=== PATIENT | female | born 2000 ===

== ENCOUNTER 2024-11-08 12:52 | Outpatient (AMB) | payer OTHER, SELFPAY ==
--- NOTE | 2024-11-08 12:58 | MHC.PC.OV ---
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 x3 years Health Promotion Coordinator Required: Yes Health Promotion Coordinator Name: Evie Armas Information Interpreted: clinical only Allergies aspirn Adverse Reaction (Uncoded 11/08/24 13:43) Eye Swelling seafood Adverse Reaction (Uncoded 11/08/24 13:43) Eye Swelling Medication List - Last Reconciled 11/08/[address] MD levonorgestrel (Mirena) intrauterine Tobacco use date assessed: 11/08/24 Dental Screening Dental Screen Date: 11/08/24 Did you have a dental visit in the last 12 months?: Yes Did you have a dental problem in the last 6 months where you did not have access to dental care?: Yes Was dental information given to patient?: Patient has dentist 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 Denies any accompanying fever, no cough, no shortness of breath no wheezing. Has just been taking Panadol tablets which affords no relief. She also had an IUD inserted in [place], [facility] ,3 years ago, and states that she has not had her period now for the last 2 years. Denies any abdominal cramping, occasional breast tenderness. She is currently sexually active with her partner, but has not done a test at all. She does want to be referred to an OBGYN for further evaluation and follow-up on her Mirena IUD [facility] Medical History (Updated 11/08/24 @ 13:[address] MD) Presence of Mirena IUD URI (upper respiratory infection) Surgical History (Updated 11/08/24 @ 14:[address] MD) No pertinent past surgical history Social History Housing: Apartment Patient Tobacco Use Status: Never used Tobacco e-Cigarette/Vaping Use: Never Used service: No Current occupational status: unemployed Cognitive needs: No Hearing needs: No Vision needs: No Female Reproductive History Menstrual control method: progestin IUCD Questionnaire PHQ-9 Over the last 2 weeks, how often have you been bothered by any of the following problems? 1. Little interest or pleasure in doing things: not at all 2. Feeling down, depressed, or hopeless: not at all 3. Trouble falling or staying asleep, or sleeping too much: not at all 4. Feeling tired or having little energy: not at all 5. Poor appetite or overeating: not at all 6. Feeling bad about yourself - or that you are a failure or have let yourself or your family down: not at all 7. Trouble concentrating on things, such as reading the newspaper or watching television: not at all 8. Moving or speaking so slowly that other people could have noticed. Or the opposite - being so fidgety or restless that you have been moving around a lot more than usual: not at all 9. Thoughts that you would be better off or of hurting yourself in some way: not at all Total score: 0 Depression Screening Interpretation: Negative Depression Screening Done: Yes 75655 - PHQ-9 Billing: Yes Source: Developed by Drs. Jose Quarels, Liz Hawkins, Miller Cox and colleagues, with an educational ginger from [employer]. Thrive Questionnaire Date Thrive assessed: 11/08/24 I am a: Patient What is your living situation today?: I have a steady place to live Within the past 12 months, did the food you bought not last and you didn't have the money to get more?: I choose not to answer this question Within the past 12 months, did you worry whether your food would run out before you got money to buy more?: Never true Do you have trouble paying for medicines?: No Do you have trouble getting transportation to medical appointments?: No Do you have trouble paying your heating and electricity bill?: No Do you have trouble taking care of your child, family member or friend?: No Do you have trouble with day-to-day activities such as bathing, preparing meals, shopping, managing finances, etc.?: No Are you currently unemployed and looking for a job?: Yes Are you interested in more education?: Yes Please select the resources that you would like help with: None Currently or been in a relationship where the following occur: No concerns reported THRIVE Score: 0 AUDIT C Alcohol Use Questionnaire (AUDIT-C) 1. How often do you have a drink containing alcohol?: Never Total Score: 0 WYATT-7 AMB Questionnaire WYATT-7 Date WYATT - 7 assessed: 11/08/24 Feeling nervous, anxious, or on edge: 0 = Not at all Not being able to stop or control worryin = Not at all Worrying too much about different things: 0 = Not at all Trouble relaxin = Not at all Being so restless that it is hard to sit still: 0 = Not at all Becoming easily annoyed or irritable: 0 = Not at all Feeling afraid as if something awful might happen: 0 = Not at all Total WYATT-7 score (0-4 normal; 5-9 mild; 10-14 moderate; 15-21 severe): 0 Source: Developed by Drs. Jose Quarles, Liz Hawkins, Miller Cox and colleagues, with an educational ginger from [employer]. WYATT-7 Assessment Billing WYATT-7 Assessment Tool: WYATT-7 Assessment 65948 Review of Systems Const All systems reviewed & are unremarkable except as noted in HPI and below Physical exam (Primary Care) Vital Signs: Last Vital Signs Temp 98.3 F 11/08/24 13:00 Pulse 94 11/08/24 13:00 Resp 18 11/08/24 13:00 BP 110/70 11/08/24 13:00 Pulse Ox 98 11/08/24 13:00 Oxygen Delivery Method Room Air 11/08/24 13:00 BMI result Body Mass Index 35.5 Tobacco/Smoking Status: Tobacco use Status Tobacco use date assessed 11/08/24 11/08/24 13:10 Patient Tobacco Use Status Never used Tobacco 11/08/24 13:10 e-Cigarette/Vaping Use Never Used 11/08/24 13:10 PHQ-9: PHQ-9 Score PHQ-9: Total score 0 11/08/24 13:44 Depression Screening Interpretation: Negative Thrive Assessment: Date of Thrive Assessment Date Thrive assessed 11/08/24 11/08/24 13:10 Currently or been in a relationship where the following occur: No concerns reported Const Other: Colombian-speaking, spoke via medical claims manager General: healthy appearing, comfortable and no acute distress Nutritional Appearance: obese Orientation/consciousness: patient oriented x3 HENMT Ears: external ears normal, TM's normal bilaterally and EAC's normal General nose exam: Normal nares present and Normal nasal mucous membranes and turbinates present Face and sinus: Yes sinuses nontender and Yes face symmetric Mouth: Normal oral and palatal mucosa present, oropharynx normal and moist mucous membranes Neck Neck: Yes full ROM, Yes no lymphadenopathy and Yes supple Resp Auscultation: clear to auscultation bilaterally Cardio Rate: regular rate Rhythm: regular rhythm Heart sounds: S1 normal heart sound present and S2 normal heart sound present GI Inspection: Yes obesity Palpation (GI): Soft to palpation, nontender, no guarding and no masses Neuro General: patient oriented x3 Coding Level of Care Code New Pt Level 4 (76034) Diagnoses Missed period N92.6 URI (upper respiratory infection) J06.9 Amenorrhea N91.2 Additional Codes PHQ-9 - 36009 - PHQ-9 Billing: Yes ([id number]) WYATT-7 Assessment Billing - WYATT-7 Assessment Tool: WYATT-7 Assessment [id number] ([id number]) Assessment & Plan Assessment & Plan (1) Missed period: Code(s): N92.6 - Irregular menstruation, unspecified Plan: Ordered serum hCG test (2) URI (upper respiratory infection): Code(s): J06.9 - Acute upper respiratory infection, unspecified Category: Medical Plan: Prescription sent for DayQuil/NyQuil, to you take as directed. Tablets were sent as patient could not tolerate liquid medication. Prescription also sent for Azelastine nasal, use 1 spray per nostril twice a day. Return to clinic if no was done (3) Amenorrhea: Code(s): N91.2 - Amenorrhea, unspecified Plan: Ordered serum hCG quantitative test referred to [facility] for further evaluation management and for IUD follow-up Orders: Orders HCG Quantitative Today N92.6 - Irregular menstruation, unspecified Referrals INTERACTIVE MEDIA SPECIALIST Referral N91.2 - Amenorrhea, unspecified, Z97.5 - Presence of (intrauterine) contraceptive device Medications: New AC-WG-ifikou/TN-xytxbw-secfyip 10-5-325mg(d)/ 15-325-6.25mg (Vicks DayQuil-NyQuil) 1 cap PO BID PRN 48 caps 0RF nasal congestion/rhinorrhea azelastine administer into each nostril 1 spray intranasal BID 30 mL 0RF J06.9 - Acute upper respiratory infection, unspecified
[2024-11-08 13:00] VITALS: BP 110/70; PULSE 94; RESP 18; TEMP 36.8; O2SAT 98; BMI 35.5
== END 2024-11-08 13:56 | disposition home or self-care (01) ==
PROVIDERS: PCP Internal Medicine; Visit Provider Internal Medicine
DX: N92.6 Irregular menstruation, unspecified (principal); J06.9 Acute upper respiratory infection, unspecified; N91.2 Amenorrhea, unspecified

== ENCOUNTER → 2024-11-08 12:52 | Outpatient (BNVA) | payer OTHER, SELFPAY | PROVIDERS: PCP Internal Medicine; Visit Provider Internal Medicine | DX: N92.6 Irregular menstruation, unspecified (principal); J06.9 Acute upper respiratory infection, unspecified; N91.2 Amenorrhea, unspecified | CPT/HCPCS: 96127; 99202 ==

== ENCOUNTER 2024-12-03 13:07 | Outpatient (AMB) | payer OTHER, SELFPAY ==
--- NOTE | 2024-12-03 13:48 | A.OFFVIS_ITS ---
Vital Signs 12/03/24 13:49 Height 5 ft Weight 182 lb BMI 35.5 Intake Visit Reasons: Amenorrhea Local Company Flatbed Truck Driver Required: Yes Local [employer] Flatbed Truck Driver Language: Measurement Technician Services: Local [employer] Flatbed Truck Driver Present (in person) [employer] Flatbed Truck Driver Name: Malka REAL Information Interpreted: non-clinical & clinical Accompanied by: Self / Same As Patient Allergies aspirn Adverse Reaction (Uncoded 12/03/24 14:12) Eye Swelling seafood Adverse Reaction (Uncoded 12/03/24 14:12) Eye Swelling Is last menstrual period known: No (mirena) HPI Comments Details: The patient is presenting to discuss different options of control. Patient had Mirena IUD inserted 3 years ago since then she has been amenorrheic, no side effects or concerns [facility] Medical History Presence of Mirena IUD URI (upper respiratory infection) Surgical History No pertinent past surgical history Social History Housing: Apartment Patient Tobacco Use Status: Never used Tobacco e-Cigarette/Vaping Use: Never Used service: No Current occupational status: unemployed Cognitive needs: No Hearing needs: No Vision needs: No Female Reproductive History Menstrual control method: progestin IUCD Review of Systems Const All systems reviewed & are unremarkable except as noted in HPI and below Reports as per HPI and Reports no additional complaints GI Reports no additional complaints Reports no additional complaints Physical Exam Vital Signs: BMI result Body Mass Index 35.5 Results AMB Test Urine AMB Test Urine Negative Last Edit by Malka Huang CMA on 13:48 Results Reviewed Results Reviewed: Laboratory Last Values Tst Clinic Negative 12/03/24 13:48 Assessment & Plan Assessment & Plan (1) Family planning: Code(s): Z30.09 - Encounter for other general counseling and advice on contraception Category: Social Hx Plan: Discussed with the patient the different options of control including control pills/Nuvaring, DMPA, different types of IUD ?s. All the pros, cons, risks and benefits of each were discussed with the patient. The patient decided to go stay with IUD, so a more detailed discussion was carried on including types (Progesterone, Copper), mechanism of action, risks (infection, uterine perforation, failure with ectopic , septic AB, dysmenorrhea with Paraguard, others) benefits (efficient contraceptive method, hypo menorrhea with Progesterone IUD, others) Orders: Orders AMB HCG Urine Test Today Z32.02 - Encounter for test, result negative Coding Level of Care Code New Pt Level 3 (41514) Diagnoses Family planning Z30.09
[2024-12-03 13:49] VITALS: BMI 35.5
== END 2024-12-03 14:46 | disposition home or self-care (01) ==
PROVIDERS: PCP Internal Medicine; Visit Provider Obstetrics & Gynecology
DX: Z30.09 Encounter for other general counseling and advice on contraception (principal); Z32.02 Encounter for pregnancy test, result negative
CPT/HCPCS: 99203

== ENCOUNTER → 2024-12-03 13:07 | Outpatient (BNVA) | payer OTHER, SELFPAY | PROVIDERS: PCP Internal Medicine; Visit Provider Obstetrics & Gynecology | DX: Z30.09 Encounter for other general counseling and advice on contraception (principal) | CPT/HCPCS: 81025; 99202 ==

== ENCOUNTER 2024-12-23 18:02 | Emergency (ER) | payer OTHER, SELFPAY ==
[2024-12-23 18:05] VITALS: BP 136/110; PULSE 138; RESP 20; TEMP 37.7; O2SAT 98; BMI 35.7
--- NOTE | 2024-12-23 18:06 | ED_ITS ---
HPI - URI/Sore Throat General Chief Complaint: Upper Respiratory Symptoms Stated Complaint: Chills/body aches/headache Time Seen by Provider: 12/23/24 19:04 Source: patient Mode of arrival: ambulatory Limitations: no limitations History of Present Illness ED Provider: Librado Mitchell PA-C HPI Narrative: 24 yo female presents to the ER for evaluation of fever, chills, body aches, sore throat and vomiting that started today. her sons at home are sick - 1 with influenza A and 1 with influenza B. bilateral tonsillar erythema and swelling with uvula midline. reports 10/10 pain in the body and 8/10 pain in the throat. no chest pain, abdominal pain, nausea, or diarrhea. she vomited once today. MD elicited complaint: fever, sore throat and nasal congestion Onset (ago): hour(s) Consistency: progressively worsening Severity: moderate Able to tolerate fluids by mouth: Yes Exacerbating factors: swallowing Relieving factors: nothing Context: sick contacts Associated symptoms: fever, chills, nasal congestion, sore throat, nausea and vomiting Treatments prior to arrival: none Related Data Home Medications ?Medication ?Instructions ?Recorded ?Confirmed levonorgestrel 21 mcg/24 hr (up to intrauterine 11/08/24 8 years) 52 mg intrauterine device (Mirena) Previous Rx's ?Medication ?Instructions ?Recorded azelastine 137 mcg (0.1 %) nasal 1 spray intranasal BID #30 mL 12/07/24 spray amoxicillin 875 mg-potassium 1 tab PO BID #20 tabs 12/23/24 clavulanate 125 mg tablet ibuprofen 600 mg tablet 600 mg PO Q8H PRN fever or pain 12/23/24 #14 tabs ondansetron 4 mg disintegrating 4 mg PO Q6H PRN nausea and 12/23/24 tablet vomiting #10 tabs Allergies Allergy/AdvReac Type Severity Reaction Status Date / Time aspirn AdvReac Eye Uncoded 12/23/24 18:10 Swelling seafood AdvReac Eye Uncoded 12/23/24 18:10 Swelling Review of Systems Review of Systems: Yes all other systems are reviewed and are negative PMFSH Past Medical History Medical History Presence of Mirena IUD URI (upper respiratory infection) Surgical History No pertinent past surgical history Social History Social History Housing: Apartment Patient Tobacco Use Status: Never used Tobacco e-Cigarette/Vaping Use: Never Used Advance Directives: No Advance Directives Information Provided: No service: No Current occupational status: unemployed Cognitive needs: No Hearing needs: No Vision needs: No Physical Exam Vital Signs: Vital Signs: Last Vital Signs Temp 99.4 F 12/23/24 19:56 Pulse 114 H 12/23/24 19:56 Resp 16 12/23/24 19:56 BP 106/49 L 12/23/24 19:56 Pulse Ox 97 12/23/24 19:56 O2 Del Method Room Air 12/23/24 19:56 BMI result Body Mass Index 35.7 Appearance: Alert. Oriented X3. No acute distress. Head: normocephalic, atraumatic. Eyes: Pupils equal, round and reactive to light. ENT: Pharynx normal. bilateral tonsillar erythema, swelling & mild exudate on the left. uvula midline. normal voice, handling secretions normally. Neck: Normal inspection. Neck supple. no LAD CVS: Normal heart rate and rhythm. Pulses normal. Respiratory: No respiratory distress. Breath sounds normal. Abdomen: Soft and nontender. +BS x4 Skin: Skin warm and dry. Normal skin color. Normal skin turgor. No rashes. Extremities: No lower extremity edema. No joint swelling. Neuro/psych: Oriented X 3. grossly normal, nonfocal. Normal speech and cognition. Medications Administered Discontinued Medications Generic Name Dose Route Start Last Admin Trade Name Freq PRN Reason Stop Dose Admin Amoxicillin/Clavulanate Potassium 875 mg 12/23/24 19:04 12/23/24 19:16 Amoxicillin/Potassium Clav 875 Mg Tablet PO 12/23/24 19:05 875 mg ONCE ONE Administration Ibuprofen 600 mg 12/23/24 18:09 12/23/24 18:50 Ibuprofen 600 Mg Tablet PO 12/23/24 18:10 600 mg ONCE ONE Administration Ondansetron HCl 4 mg 12/23/24 18:09 12/23/24 18:50 Ondansetron Odt 4 Mg Tab.Rapdis TRANSLINGU 03/16/25 18:10 4 mg ONCE ONE Administration Medical Decision Making Medical Decision Making MDM Narrative: 24 yo female with influenza contacts at home presenting with sore throat, N/V, fever, chills. exam c/w strep. tachycardic on arrival, likely due to pain and discomfort. no fever given motrin, zofran with improvement in HR found to be strep positive. augmentin started viral panel negative tolerating PO. stable for d/c home with PO abx nad nsaids. Differential Diagnosis Differential Diagnoses: The differential diagnosis associated with the presentation includes strep, covid, flu, rsv, other viral syndrome, bronchitis, pneumonia, no evidence of peritonsillar abcsess or retropharyngeal abscess Lab Data [facility] Lab Attestation statement: I reviewed the patient's lab results. Labs: Lab Results 12/23/24 12/23/24 Range/Units 18:35 18:38 Influenza Type A (PCR) NEGATIVE (Negative) Influenza Type B (PCR) NEGATIVE (Negative) RSV RNA Qual (PCR) NEGATIVE (Negative) SARS-CoV-2 RNA (RT-PCR) NEGATIVE (Negative) S. pyogenes GrpA BRANDT Positive A (Negative) External Record Review External record reviewed: Prior outpatient labs Tests considered The following testing was considered but not selected: considered labs and cxr given tachycardia, but this improved with treatment and she appears well Prescription Management I considered prescription management with: Pain Medication, Antiviral and Antibiotic Critical Care Time Critical Care Time Critical Care Time: No Discharge Plan Discharge Clinical Impression: Strep throat Patient Disposition: Home, Self-Care Instructions: Strep Throat (DC) Additional Instructions: you have strep throat Take the prescribed antibiotics as directed, complete the entire course and do not miss any doses use warm salt water gargles 3 times per day take the prescribed ibuprofen as needed for pain and fever rest and drink plenty of fluids If you develop new or worsening symptoms call 911 or come back to the ER for further evaluation. Prescriptions: New amoxicillin-pot clavulanate 875-125 mg tablet 1 tab PO BID Qty: 20 0RF ibuprofen 600 mg tablet 600 mg PO Q8H PRN (Reason: fever or pain) Qty: 14 0RF ondansetron 4 mg tablet,disintegrating 4 mg PO Q6H PRN (Reason: nausea and vomiting) Qty: 10 0RF No Action azelastine 137 mcg (0.1 %) spray,non-aerosol 1 spray intranasal BID Qty: 30 0RF Rx Instructions: administer into each nostril Mirena 21 mcg/24hr (up to 8 yrs) 52 mg intrauterine device intrauterine Stand Alone Forms: Work/School Release Interventions: ED Discharge Assessment Last Done: 12/23/24 19:56 Discharge Date/Time: 12/23/24 20:14 Print Language: Romansh
[2024-12-23] MEDS: Ondansetron ODT 4 MG TAB.RAPDIS TRANSLINGU (18:50)
[2024-12-23] MEDS: Ibuprofen 600 MG TABLET PO (18:50)
[2024-12-23 18:51] VITALS: BP 97/64; PULSE 135; RESP 18; O2SAT 97
[2024-12-23 18:57] LABS: IDNOW Serial# 08D9AD1C; Strep A Nucleic Acid Positive (Negative)
[2024-12-23] MEDS: Amoxicillin/Potassium Clav 875 MG TABLET PO (19:16)
[2024-12-23 19:35] LABS: Influenza A PCR NEGATIVE (Negative); Influenza B PCR NEGATIVE (Negative); Resp Syncy Virus RNA Qual PCR NEGATIVE (Negative); SARS COV2 PCR INHOUSE NEGATIVE (Negative)
[2024-12-23 19:56] VITALS: BP 106/49; PULSE 114; RESP 16; TEMP 37.4; O2SAT 97
== END 2024-12-23 20:14 | disposition home or self-care (01) ==
PROVIDERS: Physician Assistant; Emergency Provider Emergency Medicine; PCP Internal Medicine
DX: J02.0 Streptococcal pharyngitis (principal); R00.0 Tachycardia, unspecified; Z03.818 Encounter for observation for suspected exposure to other biological agents ruled out; Z79.899 Other long term (current) drug therapy
CPT/HCPCS: 0241U; 87651; 99283

== ENCOUNTER 2024-12-28 13:49 | Emergency (ER) | payer OTHER, SELFPAY ==
--- NOTE | ~2024-12-28 | US_ITS ---
CLINICAL HISTORY: RUQ abd pain, N V US abdomen limited Comparison: None Findings: The visualized pancreas is normal. The aorta and inferior vena cava are normal caliber. The liver is increased in size and increased in echotexture. The left lobe measures 21 cm There is no intrahepatic bile duct dilatation. The common duct is not visualized. Status post cholecystectomy. The main portal vein is antegrade. The right kidney is 12.7 cm in length. No ascites. IMPRESSION: Hepatomegaly with hepatic steatosis. No definite acute process by ultrasound. This document has been electronically signed by: Nikos Vegas MD on 12/28/2024 18:07:52
--- NOTE | ~2024-12-28 | XR_ITS ---
EXAMINATION: XR CHEST CLINICAL INFORMATION: uri sx COMPARISON: None available. TECHNIQUE: 2 views of the chest were obtained. FINDINGS: The lungs are expanded with bandlike density left upper lobe anterior segment question infiltrate/atelectasis. Rest lungs are somewhat expanded and clear. The heart size and pulmonary vascularity is normal. No gross bony abnormality seen. XR/XR chest 2V IMPRESSION: Left upper lobe infiltrate/atelectasis. Electronically signed by: Collins Andrews MD 12/28/2024 04:08 PM EDT RP
[2024-12-28 14:26] VITALS: BP 113/73; PULSE 140; RESP 16; TEMP 38.1; BMI 35.6
--- NOTE | 2024-12-28 14:26 | ED_ITS ---
HPI - URI/Sore Throat General Chief Complaint: Fever Stated Complaint: Sore throat Time Seen by Provider: 12/28/24 16:42 Source: patient Mode of arrival: ambulatory Limitations: no limitations History of Present Illness ED Provider: Librado Mitchell PA-C HPI Narrative: 24 yo female with Strep throat diagnosed on 12/23 presents back to the ER for evaluation of worsening sore throat, body aches, headaches despite taking her prescribed Augmentin and over the counter cold meds. She reports nausea, vomiting, upset stomach, cough, and general malaise. She has been able to swallow the antibiotics and has been compliant. Her kids at home were home sick with influenza A and B as well. MD elicited complaint: fever, cough, sore throat and other (body aches and headache) Pertinent past history: other (strep + 12/23) Onset (ago): day(s) Consistency: progressively worsening Severity: severe Able to tolerate fluids by mouth: Yes Exacerbating factors: swallowing Relieving factors: nothing Context: sick contacts Associated symptoms: fever, chills, myalgias, headache, nasal congestion, sore throat and cough Treatments prior to arrival: none Related Data Home Medications ?Medication ?Instructions ?Recorded ?Confirmed levonorgestrel 21 mcg/24 hr (up to intrauterine 11/08/24 8 years) 52 mg intrauterine device (Mirena) Previous Rx's ?Medication ?Instructions ?Recorded azelastine 137 mcg (0.1 %) nasal 1 spray intranasal BID #30 mL 12/07/24 spray amoxicillin 875 mg-potassium 1 tab PO BID #20 tabs 12/23/24 clavulanate 125 mg tablet ibuprofen 600 mg tablet 600 mg PO Q8H PRN fever or pain 12/23/24 #14 tabs ondansetron 4 mg disintegrating 4 mg PO Q6H PRN nausea and 12/23/24 tablet vomiting #10 tabs azithromycin 250 mg tablet See Rx Instructions PO .COMPLEX #6 12/28/24 (Zithromax Z-Missael) tabs ondansetron 4 mg disintegrating 4 mg PO Q8H PRN nausea and 12/28/24 tablet vomiting #7 tabs Allergies Allergy/AdvReac Type Severity Reaction Status Date / Time aspirn AdvReac Eye Uncoded 12/28/24 14:28 Swelling seafood AdvReac Eye Uncoded 12/28/24 14:28 Swelling Review of Systems 2 Review of Systems: Yes all other systems are reviewed and are negative [facility] Past Medical History Medical History Presence of Mirena IUD URI (upper respiratory infection) Surgical History No pertinent past surgical history Social History Social History Housing: Apartment Patient Tobacco Use Status: Never used Tobacco Smoked in Last 30 Days: No e-Cigarette/Vaping Use: Never Used Use of substances other than those prescribed or required for medical reasons: No Advance Directives: No Advance Directives Information Provided: Yes Do you have a plan to hurt others: No Plan Patient : No service: No Current occupational status: unemployed Cognitive needs: No Hearing needs: No Vision needs: No Physical Exam 2 Vital Signs: Vital Signs: Last Vital Signs Temp 98.7 F 12/28/24 19:44 Pulse 100 12/28/24 19:44 Resp 16 12/28/24 19:44 BP 100/54 L 12/28/24 19:44 Pulse Ox 96 12/28/24 19:44 O2 Del Method Room Air 12/28/24 19:44 BMI result Body Mass Index 35.6 Appearance: Alert. Oriented X3. No acute distress. Head: normocephalic, atraumatic. Eyes: Pupils equal, round and reactive to light. ENT: Pharynx normal. + tonsillar swelling and mild erythema without exudate. Neck: Normal inspection. Neck supple. Bilateral submandibular lymphadenopathy CVS: Normal heart rate and rhythm. Pulses normal. Respiratory: No respiratory distress. Breath sounds normal. Abdomen: Soft and nontender. +BS x4 Skin: Skin warm and dry. Normal skin color. Normal skin turgor. No rashes. Extremities: No lower extremity edema. No joint swelling. Neuro/psych: Oriented X 3. Grossly normal,nonfocal. Normal speech and cognition. Course Course Course Narrative: This is a Rapid Medical Exam performed in triage by Meg Steven PA-C. Full HPI, ROS and PE to be performed by primary ED provider. 24-year-old Georgian-speaking female presenting to the ED c/o continued/worsening, sore throat, dry cough, chills, fever, BULL, N/V & and abdominal pain. Was seen and treated in our ED on 12/23 diagnosed with strep pharyngitis, has been taking antibiotics without relief. PE: Tachycardic, low-grade fever, abdomen is soft with RUQ tenderness, no rebound or guarding. Plan: Labs, UA, ultrasound Medications Administered Discontinued Medications Generic Name Dose Route Start Last Admin Trade Name Freq PRN Reason Stop Dose Admin Acetaminophen 650 mg 12/28/24 15:53 12/28/24 17:23 Acetaminophen 325 Mg Tablet PO 12/28/24 15:54 650 mg ONCE ONE Administration Ceftriaxone Sodium 1 gm 12/28/24 15:55 12/28/24 17:24 Ceftriaxone Sodium 1 Gm Vial IVPUSH 12/28/24 15:56 1 gm ONCE ONE Administration Sodium Chloride 1,000 mls @ 999 mls/hr 12/28/24 16:00 12/28/24 18:37 Ns IV 12/28/24 17:00 Infused .Q1H1M TONJA Infusion Sodium Chloride 1,000 mls @ 999 mls/hr 12/28/24 18:15 12/28/24 19:53 Ns IVCONT 12/28/24 19:15 Infused .Q1H1M TONJA Infusion Ketorolac Tromethamine 15 mg 12/28/24 17:51 12/28/24 18:35 Ketorolac Tromethamine 15 Mg/Ml Vial IVPUSH 12/28/24 17:52 15 mg ONCE ONE Administration Ondansetron HCl 4 mg 12/28/24 17:51 12/28/24 18:35 Ondansetron Hcl 4 Mg/2 Ml Vial IVPUSH 12/28/24 17:52 4 mg ONCE ONE Administration Medical Decision Making Medical Decision Making MDM Narrative: 24 yo female with Strep throat dx 12/23 presenting for evaluation of worsening symptoms including muscle aches, headaches, body aches, cough, and sore throat tachycardic with low grade fever on arrival labs significant for leukocytosis 18.5K. normal lactic acid. LFTs mildly elevated. she has no RUQ tenderness on exam CXR with PNA vs atelectasis on the left HR improved after tylenol and IVF. Abd US showing some fatty liver changes. Feeling better, getting 2nd liter of fluids. anticipate d/c home with additional abx for possible CAP 2006-- received sign-out from colleague Dee ROCHE, patient's vitals have improved. Received 2 L IV fluid, heart rate down to 100. Repeat CBC with improved leukocytosis of 14.2. Will be discharged with additional antibiotics and close PCP follow-up Results discussed with patient including worrisome signs and symptoms and strict return precautions, and when to return to the emergency department. They verbalized understanding and feel safe for discharge at this time. Differential Diagnosis Differential Diagnoses: The differential diagnosis associated with the presentation includes strep throat, influenza, COVID, acute cholecystitis, pneumonia, bronchitis, gastroenteritis, dehydration, EDGAR Admission/Observation Consideration of admission/observation: Escalation of care including admission/observation considered Lab Data MDM Lab Attestation statement: I reviewed the patient's lab results. leukocytosis 12/28/24 19:53 12/28/24 15:08 Labs: Lab Results 12/28/24 12/28/24 12/28/24 Range/Units 15:08 16:27 18:03 WBC 18.5 H (4.8-10.8) X10*3/uL RBC 4.82 (4.20-5.50) X10*6/uL Hgb 14.6 (12.0-16.0) g/dl Hct 41.8 (37.0-47.0) % MCV 86.7 (80.0-98.0) fL MCH 30.3 (27.0-33.0) pg MCHC 34.9 (31.0-35.0) g/dl RDW 11.6 (11.0-16.0) % Plt Count 305 (160-400) X10*3/uL MPV 8.6 L (9.4-12.3) fL Immature Gran % (Auto) 0.5 H (0.0-0.4) % Neut % (Auto) 84.2 H (45-73) % Lymph % (Auto) 9.9 L (20-40) % [place] % (Auto) 5.0 (2-11) % Eos % (Auto) 0.2 (0-4) % Baso % (Auto) 0.2 (0-2) % Lymph # (Auto) 1.8 (1.2-4.9) X10*3/uL [place] # (Auto) 0.9 (0.1-1.2) X10*3/uL Eos # (Auto) 0.0 (0.0-0.4) X10*3/uL Baso # (Auto) 0.0 (0.0-0.2) X10*3/uL Abs Immat Gran (auto) 0.10 H (0.00-0.03) X10*3/uL Absolute Neuts (auto) 15.6 H (2.0-8.3) x10*3/uL Absolute Nucleated RBC 0.000 (0.0-0.012) X10*3/uL Nucleated RBC % (auto) 0.0 (0.0-0.2) /100WBC Sodium 140 (135-145) mmol/L Potassium 3.7 (3.3-5.1) mmol/L Chloride 106 (96-108) mmol/L Carbon Dioxide 24 (22-29) mmol/L Anion Gap 14 (12-20) BUN 12 (9-16) mg/dL Creatinine 0.72 (0.5-1.4) mg/dL Estim Creat Clear Calc 112.7 Estimated GFR > 60 Random Glucose 95 (60-115) mg/dL Lactic Acid 1.6 (0.5-2.0) mmol/L Calcium 9.7 (8.4-10.2) mg/dL Magnesium 1.8 (1.6-2.6) mg/dL Total Bilirubin 1.7 H (0.0-1.0) mg/dL Direct Bilirubin 0.4 (0.0-0.5) mg/dL AST 46 H (5-31) U/L ALT 84 H (0-31) U/L Alkaline Phosphatase 86 (39-117) U/L Total Protein 8.5 H (6.5-8.0) g/dL Albumin 4.5 (3.5-5.0) g/dL Lipase 13 (8-78) U/L Urine Color Dark Yellow Urine Appearance Cloudy Urine pH 5.5 (5.0-9.0) Ur Specific [place] 1.025 (1.005-1.025) Urine Protein 30 (1+) H (Neg-Trace) mg/dL Urine Glucose (UA) Negative (Negative) mg/dL Urine Ketones Trace (Negative) mg/dL Urine Blood Negative (Negative) Urine Nitrite Negative (Negative) Ur Leukocyte Esterase Large (3+) H (Negative) Urine RBC 0-2 (0-2) /HPF Urine WBC >50 H (0-5) /HPF Ur Squamous Epith Cells 11-20 (0-2) /HPF Urine Bacteria 4+ (None Seen) Hyaline Casts 3-5 (0-2) /LPF Urine Test NEGATIVE (NEGATIVE) Influenza Type A (PCR) NEGATIVE (Negative) Influenza Type B (PCR) NEGATIVE (Negative) RSV RNA Qual (PCR) NEGATIVE (Negative) SARS-CoV-2 RNA (RT-PCR) NEGATIVE (Negative) 12/28/24 Range/Units 19:53 WBC 14.2 H (4.8-10.8) X10*3/uL RBC 4.05 L (4.20-5.50) X10*6/uL Hgb 12.3 (12.0-16.0) g/dl Hct 35.3 L (37.0-47.0) % MCV 87.2 (80.0-98.0) fL MCH 30.4 (27.0-33.0) pg MCHC 34.8 (31.0-35.0) g/dl RDW 11.6 (11.0-16.0) % Plt Count 279 (160-400) X10*3/uL MPV 8.6 L (9.4-12.3) fL Immature Gran % (Auto) 0.5 H (0.0-0.4) % Neut % (Auto) 79.1 H (45-73) % Lymph % (Auto) 13.8 L (20-40) % [place] % (Auto) 6.3 (2-11) % Eos % (Auto) 0.1 (0-4) % Baso % (Auto) 0.2 (0-2) % Lymph # (Auto) 2.0 (1.2-4.9) X10*3/uL [place] # (Auto) 0.9 (0.1-1.2) X10*3/uL Eos # (Auto) 0.0 (0.0-0.4) X10*3/uL Baso # (Auto) 0.0 (0.0-0.2) X10*3/uL Abs Immat Gran (auto) 0.07 H (0.00-0.03) X10*3/uL Absolute Neuts (auto) 11.3 H (2.0-8.3) x10*3/uL Absolute Nucleated RBC 0.000 (0.0-0.012) X10*3/uL Nucleated RBC % (auto) 0.0 (0.0-0.2) /100WBC Sodium (135-145) mmol/L Potassium (3.3-5.1) mmol/L Chloride (96-108) mmol/L Carbon Dioxide (22-29) mmol/L Anion Gap (12-20) BUN (9-16) mg/dL Creatinine (0.5-1.4) mg/dL Estim Creat Clear Calc Estimated GFR Random Glucose (60-115) mg/dL Lactic Acid (0.5-2.0) mmol/L Calcium (8.4-10.2) mg/dL Magnesium (1.6-2.6) mg/dL Total Bilirubin (0.0-1.0) mg/dL Direct Bilirubin (0.0-0.5) mg/dL AST (5-31) U/L ALT (0-31) U/L Alkaline Phosphatase (39-117) U/L Total Protein (6.5-8.0) g/dL Albumin (3.5-5.0) g/dL Lipase (8-78) U/L Urine Color Urine Appearance Urine pH (5.0-9.0) Ur Specific [place] (1.005-1.025) Urine Protein (Neg-Trace) mg/dL Urine Glucose (UA) (Negative) mg/dL Urine Ketones (Negative) mg/dL Urine Blood (Negative) Urine Nitrite (Negative) Ur Leukocyte Esterase (Negative) Urine RBC (0-2) /HPF Urine WBC (0-5) /HPF Ur Squamous Epith Cells (0-2) /HPF Urine Bacteria (None Seen) Hyaline Casts (0-2) /LPF Urine Test (NEGATIVE) Influenza Type A (PCR) (Negative) Influenza Type B (PCR) (Negative) RSV RNA Qual (PCR) (Negative) SARS-CoV-2 RNA (RT-PCR) (Negative) Independent Interpretation I performed an independent interpretation of an: Plain X-Ray Interpretation: JESSICA infiltrate verses platelike atelectasis Radiology Impression Discussion of test interpretation with radiology: I have reviewed the radiologist's reading. External Record Review External record reviewed: Prior outpatient labs Prescription Management I considered prescription management with: Pain Medication and Antibiotic Critical Care Time Critical Care Time Critical Care Time: No Discharge Plan Discharge Clinical Impression: Pneumonia Qualifiers: Pneumonia type: due to unspecified organism Laterality: unspecified laterality Lung location: unspecified part of lung Qualified Code(s): J18.9 - Pneumonia, unspecified organism Patient Disposition: Home, Self-Care Instructions: Community Acquired Pneumonia (DC) Additional Instructions: continue your previously prescribed Augmentin, complete the entire course Start the prescribed Z-pack for possible pneumonia seen on chest x-ray Your abdominal ultrasound today showed fatty liver, no signs of infection Rest and drink plenty of fluids Take over the counter cold/flu medications as needed for your symptoms Follow up with your doctor next week If you develop new or worsening symptoms call 911 or come back to the ER for further evaluation. Prescriptions: New azithromycin [Zithromax Z-Missael] 250 mg tablet See Rx Instructions .ROUTE .COMPLEX Qty: 6 0RF Rx Instructions: take 500 mg today (day 1), then 250 mg for 4 days (days 2-5) ondansetron 4 mg tablet,disintegrating 4 mg PO Q8H PRN (Reason: nausea and vomiting) Qty: 7 0RF No Action azelastine 137 mcg (0.1 %) spray,non-aerosol 1 spray intranasal BID Qty: 30 0RF Rx Instructions: administer into each nostril amoxicillin-pot clavulanate 875-125 mg tablet 1 tab PO BID Qty: 20 0RF ibuprofen 600 mg tablet 600 mg PO Q8H PRN (Reason: fever or pain) Qty: 14 0RF ondansetron 4 mg tablet,disintegrating 4 mg PO Q6H PRN (Reason: nausea and vomiting) Qty: 10 0RF Mirena 21 mcg/24hr (up to 8 yrs) 52 mg intrauterine device intrauterine Print Language: Georgian
[2024-12-28 15:12] LABS: MANUAL DIFF FLAG NO
[2024-12-28 15:14] LABS: Basophils Percent Auto 0.2 % (0-2); Eosinophils Percent Auto 0.2 % (0-4); Hematocrit 41.8 % (37.0-47.0); Hemoglobin 14.6 g/dl (12.0-16.0); Imm Gran Pct Auto 0.5 % (0.0-0.4); Lymphocytes Absolute Auto 1.8 X10*3/uL (1.2-4.9); Lymphocytes Percent Auto 9.9 % (20-40); Mean Corpuscular HGB Conc 34.9 g/dl (31.0-35.0); Mean Corpuscular Hemoglobin 30.3 pg (27.0-33.0); Mean Corpuscular Volume 86.7 fL (80.0-98.0); Mean Platelet Volume 8.6 fL (9.4-12.3); Monocytes Absolute Auto 0.9 X10*3/uL (0.1-1.2); Neutrophils Absolute Auto 15.6 x10*3/uL (2.0-8.3); Neutrophils Percent Auto 84.2 % (45-73); Platelet Count 305 X10*3/uL (160-400); Red Blood Count 4.82 X10*6/uL (4.20-5.50); Red Cell Distribution Width 11.6 % (11.0-16.0); White Blood Count 18.5 X10*3/uL (4.8-10.8)
[2024-12-28 15:17] LABS: Appearance Urine Cloudy; Color Urine Dark Yellow; Glucose Urine UA Negative (Negative); Leukocyte Esterase Urine Large (3+) (Negative); Nitrite Urine Negative (Negative); PH 5.5 (5.0-9.0); Specific Gravity - Urine 1.025 (1.005-1.025); UMIC TRIGGER UACC YES; Urine Blood Negative (Negative); Urine Ketones Trace mg/dL (Negative); Urine Protein 30 (1+) mg/dL (Neg-Trace)
[2024-12-28 15:19] LABS: UPreg QC Valid YES; Urine Pregnancy NEGATIVE (NEGATIVE)
[2024-12-28 15:25] LABS: Bacteria Urine 4+ (None Seen); RBC Urine 0-2 /HPF (0-2); UACC Culture Trigger YES; WBC Urine >50 /HPF (0-5)
[2024-12-28 15:38] LABS: Alanine Aminotransferase 84 U/L (0-31); Albumin Level 4.5 g/dL (3.5-5.0); Anion Gap 14 (12-20); Aspartate Amino Transferase 46 U/L (5-31); Bilirubin Direct 0.4 mg/dL (0.0-0.5); Bilirubin Total 1.7 mg/dL (0.0-1.0); Blood Urea Nitrogen 12 mg/dL (9-16); Calcium 9.7 mg/dL (8.4-10.2); Carbon Dioxide 24 mmol/L (22-29); Chloride 106 mmol/L (96-108); Creatinine Clr Calc Pharmacy 112.7; Estimated Glomerular Filt Rate > 60; Glucose Random 95 mg/dL (60-115); Lipase 13 U/L (8-78); Magnesium 1.8 mg/dL (1.6-2.6); Potassium 3.7 mmol/L (3.3-5.1); Sodium 140 mmol/L (135-145); Total Protein 8.5 g/dL (6.5-8.0)
[2024-12-28 15:58] LABS: Alkaline Phosphatase 86 U/L (39-117)
[2024-12-28 16:49] LABS: Lactic Acid 1.6 mmol/L (0.5-2.0)
[2024-12-28 17:21] VITALS: BP 114/73; PULSE 139; RESP 18; TEMP 37.9; O2SAT 95
[2024-12-28] MEDS: Acetaminophen 325 MG TABLET 650 MG PO (17:23)
[2024-12-28] MEDS: cefTRIAXone sodium 1 GM VIAL IVPUSH (17:24)
[2024-12-28] MEDS: 0.9 % Sodium Chloride 1,000 ML 999 ML IV (17:26)
[2024-12-28] MEDS: ondansetron HCL 4 MG/2 ML VIAL IVPUSH (18:35)
[2024-12-28] MEDS: Ketorolac Tromethamine 15 MG/ML VIAL IVPUSH (18:35)
[2024-12-28] MEDS: 0.9 % Sodium Chloride 1,000 ML 999 ML IVCONT (18:36)
[2024-12-28 18:37] VITALS: BP 101/55; PULSE 119; RESP 16; TEMP 37.6; O2SAT 95
[2024-12-28 18:51] LABS: Influenza A PCR NEGATIVE (Negative); Influenza B PCR NEGATIVE (Negative); Resp Syncy Virus RNA Qual PCR NEGATIVE (Negative); SARS COV2 PCR INHOUSE NEGATIVE (Negative)
[2024-12-28 19:44] VITALS: BP 100/54; PULSE 100; RESP 16; TEMP 37.1; O2SAT 96
[2024-12-28 19:59] LABS: MANUAL DIFF FLAG NO
[2024-12-28 20:03] LABS: Basophils Percent Auto 0.2 % (0-2); Eosinophils Percent Auto 0.1 % (0-4); Hematocrit 35.3 % (37.0-47.0); Hemoglobin 12.3 g/dl (12.0-16.0); Imm Gran Abs Auto 0.07 X10*3/uL (0.00-0.03); Imm Gran Pct Auto 0.5 % (0.0-0.4); Lymphocytes Percent Auto 13.8 % (20-40); Mean Corpuscular HGB Conc 34.8 g/dl (31.0-35.0); Mean Corpuscular Hemoglobin 30.4 pg (27.0-33.0); Mean Corpuscular Volume 87.2 fL (80.0-98.0); Mean Platelet Volume 8.6 fL (9.4-12.3); Monocytes Absolute Auto 0.9 X10*3/uL (0.1-1.2); Monocytes Percent Auto 6.3 % (2-11); Neutrophils Absolute Auto 11.3 x10*3/uL (2.0-8.3); Neutrophils Percent Auto 79.1 % (45-73); Platelet Count 279 X10*3/uL (160-400); Red Blood Count 4.05 X10*6/uL (4.20-5.50); Red Cell Distribution Width 11.6 % (11.0-16.0); White Blood Count 14.2 X10*3/uL (4.8-10.8)
[2024-12-28 20:16] VITALS: BP 100/54; PULSE 100; RESP 16; TEMP 37.1; O2SAT 96
== END 2024-12-28 20:17 | disposition home or self-care (01) ==
PROVIDERS: Physician Assistant; Emergency Provider Emergency Medicine; PCP Nurse Practitioner Family
DX: J18.9 Pneumonia, unspecified organism (principal); R16.0 Hepatomegaly, not elsewhere classified; R50.9 Fever, unspecified; J02.9 Acute pharyngitis, unspecified; R11.2 Nausea with vomiting, unspecified; R10.11 Right upper quadrant pain; M79.10 Myalgia, unspecified site; R51.9 Headache, unspecified; R05.9 Cough, unspecified; Z03.818 Encounter for observation for suspected exposure to other biological agents ruled out; Z79.899 Other long term (current) drug therapy
CPT/HCPCS: 0241U; 36415; 71046; 76705; 80048; 80076; 81001; 81025; 83605; 83690; 83735; 85025; 87040; 87086; 96361; 96374; 96375; 99284; 99285; J0696; J1885; J2405

== ENCOUNTER → 2024-12-28 15:55 | Outpatient (BNV) | payer OTHER, SELFPAY | PROVIDERS: Emergency Provider Emergency Medicine; PCP Nurse Practitioner Family; Visit Provider Radiology Diagnostic Radiology | DX: R16.0 Hepatomegaly, not elsewhere classified (principal); J98.11 Atelectasis | CPT/HCPCS: 71046; 76705 ==

== ENCOUNTER 2025-01-14 12:45 | Outpatient (AMB) | payer OTHER, SELFPAY ==
--- NOTE | 2025-01-14 13:01 | MHC.OFFVIS ---
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 She has a Mirena IUD.. She thinks her last Pap smear was about a year and a half ago the IUD was placed in [facility] around 3 years ago. [facility] Medical History Presence of Mirena IUD URI (upper respiratory infection) Surgical History No pertinent past surgical history Social History Housing: Apartment Patient Tobacco Use Status: Never used Tobacco e-Cigarette/Vaping Use: Never Used service: No Current occupational status: unemployed Cognitive needs: No Hearing needs: No Vision needs: No Female Reproductive History Menstrual control method: progestin IUCD Total pregnancies: 3 Full term: 3 Physical Exam Vital Signs: Last Vital Signs BP 100/66 01/14/25 13:02 BMI result Body Mass Index 35.2 Other: groin area is dark brown with some excoriated areas from scratching skin is leathery consistent with chronic irritation and. scratching speculum exam copious yellowish mucousy discharge cultures taken multiparous cervix with Mirena strings visible. Assessment & Plan Assessment & Plan (1) Presence of Mirena IUD: Code(s): Z97.5 - Presence of (intrauterine) contraceptive device Category: Social Hx (2) Family planning: Code(s): Z30.09 - Encounter for other general counseling and advice on contraception Category: Social Hx (3) Vaginal discharge: Code(s): N89.8 - Other specified noninflammatory disorders of vagina Category: Medical (4) Tinea: Comment: fungal infection of groin acute exacerbation of clearly a chronic issue teaching done plus treatment with clotrimazole betamethasone cream for 2 weeks only. Code(s): B35.9 - Dermatophytosis, unspecified Category: Medical Plan cultures taken we will treat as appropriate depending on results. For the groin fungal irritation a lot of teaching was done about the nature of fungal infection and it is semi chronic recurrent nature and this contributing factors. Also discussed hygiene and not to touch her eyes after she has been touching her groin area. I am going to treat with clotrimazole betamethasone cream to use twice a day topically to the area for 2 weeks and then I instructed her to put the rest away and save it for the future if she gets another exacerbation also discussed avoiding clothing that can exacerbate the issue. She should also get on the portal to get her results and make an appointment for an annual exam to discuss all other issues. Orders: Orders CT NG by PCR Today N89.8 - Other specified noninflammatory disorders of vagina, Z20.2 - Contact with and (suspected) exposure to infections with a predominantly sexual mode of transmission Bacterial Vaginosis Panel Today N89.8 - Other specified noninflammatory disorders of vagina Medications: New clotrimazole-betamethasone 1-0.05 % 1 appl topical BID 2 weeks 45 grams 1RF Coding Level of Care Code Est Pt Level 3 (01280) Diagnoses Presence of Mirena IUD Z97.5 Family planning Z30.09 Vaginal discharge N89.8 Tinea B35.9
[2025-01-14 13:02] VITALS: BP 100/66; BMI 35.2
== END 2025-01-14 14:05 | disposition home or self-care (01) ==
LOC: HO.HWS 12:45
PROVIDERS: PCP Internal Medicine; Visit Provider Advanced Practice Midwife
DX: Z97.5 Presence of (intrauterine) contraceptive device (principal); Z30.09 Encounter for other general counseling and advice on contraception; N89.8 Other specified noninflammatory disorders of vagina; B35.9 Dermatophytosis, unspecified
CPT/HCPCS: 99213

== ENCOUNTER 2025-01-14 12:45 | Outpatient (REF) | payer OTHER, SELFPAY ==
[2025-01-14 16:53] LABS: Bacterial Vaginosis PCR POSITIVE (Negative); Candida Group PCR NOT DETECTED (Not Detect); Candida glab krusei PCR NOT DETECTED (Not Detect); Trichomonas vaginalis PCR NOT DETECTED (Not Detect)
[2025-01-14 17:25] LABS: CT PCR NOT DETECTED (Not Detect.); NG PCR NOT DETECTED (Not Detect.)
== END 2025-01-14 12:46 | disposition home or self-care (01) ==
LOC: HO.LAB 12:45
PROVIDERS: PCP Internal Medicine; Visit Provider Advanced Practice Midwife
DX: N89.8 Other specified noninflammatory disorders of vagina (principal); B35.9 Dermatophytosis, unspecified; Z20.2 Contact with and (suspected) exposure to infections with a predominantly sexual mode of transmission; Z97.5 Presence of (intrauterine) contraceptive device; Z30.09 Encounter for other general counseling and advice on contraception
CPT/HCPCS: 81515; 87491; 87591; 99212

== ENCOUNTER 2025-02-26 16:17 | Emergency (ER) | payer OTHER, SELFPAY ==
--- NOTE | ~2025-02-26 | XR_ITS ---
CLINICAL HISTORY: cough, chills, fevers Exam: PA and lateral views of the chest. Comparison: December 28, 2024. Findings: Lungs are well inflated. Cardiac silhouette is within normal limits. Perihilar bronchial wall thickening with central interstitial prominence. No focal areas of consolidation. Specifically, the left upper lobe infiltrate on prior study is no longer evident. No pleural effusion or pneumothorax. Impression: Bilateral perihilar bronchitis/bronchiolitis. This document has been electronically signed by: Bhavesh Colón MD on 02/26/2025 18:14:39
[2025-02-26 16:41] VITALS: BP 124/84; PULSE 109; RESP 18; TEMP 36.8; O2SAT 99; BMI 31.1
--- NOTE | 2025-02-26 16:44 | ED_ITS ---
HPI - General Adult General Chief complaint: Upper Respiratory Symptoms Stated complaint: Flu like symptoms Time Seen by Provider: 02/26/25 18:41 Source: patient Mode of arrival: ambulatory Limitations: no limitations History of Present Illness ED Provider: KASSIE BRUNNER PA-C HPI narrative: 24 year old female presents to the ED today for evaluation of headaches, congestion, chills, myalgias, and cough x3 days. No sick contacts. Took Panadol [employer] in ED. Related Data Home Medications ?Medication ?Instructions ?Recorded ?Confirmed levonorgestrel 21 mcg/24 hr (up to intrauterine 11/08/24 01/14/25 8 years) 52 mg intrauterine device (Mirena) Previous Rx's ?Medication ?Instructions ?Recorded clotrimazole-betamethasone 1 1 appl topical BID 2 weeks #45 01/14/25 %-0.05 % topical cream grams metronidazole 0.75 % (37.5 mg/5 1 appful vaginal BEDTIME 5 days 01/16/25 gram) vaginal gel #70 grams azithromycin 250 mg tablet See Rx Instructions PO .COMPLEX #6 02/26/25 tabs benzonatate 100 mg capsule 100 mg PO BID PRN cough #20 caps 02/26/25 prednisone 20 mg tablet 40 mg (2 x 20 mg) PO DAILY 5 days 02/26/25 #10 tabs Allergies Allergy/AdvReac Type Severity Reaction Status Date / Time aspirn AdvReac Eye Uncoded 02/26/25 16:43 Swelling seafood AdvReac Eye Uncoded 02/26/25 16:43 Swelling Review of Systems Review of Systems: Yes all other systems are reviewed and are negative PMFSH Past Medical History Attestation statement: The following information was validated with the patient. Source: old records reviewed and nursing notes reviewed Medical History Presence of Mirena IUD URI (upper respiratory infection) Surgical History No pertinent past surgical history Social History Social History Housing: Apartment Patient Tobacco Use Status: Never used Tobacco e-Cigarette/Vaping Use: Never Used Advance Directives: No Advance Directives Information Provided: No service: No Current occupational status: unemployed Cognitive needs: No Hearing needs: No Vision needs: No Physical Exam ED Vital Signs: Vital Signs - 24 hr 02/26/25 16:41 Temperature 98.2 F Pulse Rate 109 H Respiratory Rate 18 Blood Pressure 124/84 Pulse Oximetry 99 Oxygen Delivery Method Room Air BMI result Body Mass Index 31.1 tachycardic, vitals otherwise wnl. afebrile. General: Well appearing, in no acute distress. Skin: Warm, dry, intact. No rashes or lesions. Head: Normocephalic, atraumatic. EENT: Hearing is intact b/l. Conjunctiva clear. PERRLA. EOM intact. Moist mucous membranes.? Cardiac: Chest wall symmetric. RRR Lungs: Normal respiratory effort without accessory muscle use. CTA bilaterally. No rales, rhonchi, or wheezes.? Abdomen: Soft, non-tender, non-distended. No rebound tenderness or guarding. Positive BS x4. Ext: Upper and lower extremities atraumatic, without tenderness, deformity, swelling or erythema Neuro: AOx3. Normal speech. Ambulating with steady gait Course Course Course Narrative: 02/26/25 1644 DELMA Charles This is a Rapid Medical Examination (RME) performed by Kenya Brunner PA-C in triage. Full HPI, ROS, assessment and treatment plan per primary provider in the Main ED. Hx: 24 yo F here for eval of cough, chills, fever, congestion, headache, myalgias x3 days. no sick contacts. took pannadol at home. PE/vitals: lungs clear. afebrile. Plan: viral swabs, cxr Reevaluation(s) Reevaluation #1: 1450 -- negative COVID, flu, RSV. Chest x-ray concerning for bronchitis. Discussed results with patient. Will send azithromycin, prednisone and Tessalon to pharmacy. She is agreeable. Patient has remained stable throughout ED visit today. Discussed worrisome signs and symptoms and when to return to the ED. All questions answered at this time. Patient is agreeable with disposition and stable for discharge. Medical Decision Making Medical Decision Making MDM Narrative: 24 year old female presents to the ED today for evaluation of headaches, congestion, chills, myalgias, and cough x3 days. Tachycardic, afebrile. NAD. Congested cough noted on exam. No respiratory distress. Lungs are CTA bilaterally without wheezes. Differential diagnosis includes viral syndrome, pneumonia, bronchitis Plan for viral swabs, chest x-ray. Differential Diagnosis Differential Diagnoses: The differential diagnosis associated with the presentation includes as above. Admission/Observation not indicated. Lab Data MDM Lab Attestation statement: I reviewed the patient's lab results. as above. Labs: Lab Results 02/26/25 Range/Units 16:50 Influenza Type A (PCR) NEGATIVE (Negative) Influenza Type B (PCR) NEGATIVE (Negative) RSV RNA Qual (PCR) NEGATIVE (Negative) SARS-CoV-2 RNA (RT-PCR) NEGATIVE (Negative) Independent Interpretation I performed an independent interpretation of an: Plain X-Ray Interpretation: CXR without focal consolidation Radiology Impression Discussion of test interpretation with radiology: I have reviewed the radiologist's reading. Radiologist Impression: Procedure(s): XR chest 2V Accession Number(s): [id number] cc: Judi Street MD; Kassie Brunner~ CLINICAL HISTORY: cough, chills, fevers Exam: PA and lateral views of the chest. Comparison: December 28, 2024. Findings: Lungs are well inflated. Cardiac silhouette is within normal limits. Perihilar bronchial wall thickening with central interstitial prominence. No focal areas of consolidation. Specifically, the left upper lobe infiltrate on prior study is no longer evident. No pleural effusion or pneumothorax. Impression: Bilateral perihilar bronchitis/bronchiolitis. This document has been electronically signed by: Bhavesh Colón MD on 02/26/2025 18:14:39 External Record Review External record reviewed: Inpatient record Prescription Management I considered prescription management with: Antibiotic (azithromycin) and Other (prednisone, tessalon) Social Determinants Patient?s care significantly limited by Social Determinants of Health including: Other Social Determinant of Health Critical Care Time Critical Care Time Critical Care Time: No Discharge Plan Discharge Clinical Impression: Bronchitis Patient Disposition: Home, Self-Care Instructions: Acute Bronchitis (ED) Additional Instructions: You tested negative for COVID, flu, RSV. Your chest x-ray shows findings concerning for bronchitis. I am sending azithromycin, antibiotic to your pharmacy. Take this as prescribed over the next 5 days. Prednisone as a steroid that has been sent to your pharmacy to help with your breathing. Take this as prescribed over 5 days. I am also sending Sarai Bridges to your pharmacy for cough. I recommend you take 600mg ibuprofen every 6 hours or Tylenol 650mg every 6 hours as needed for pain. If needed, you can alternate these medications so that you take one medication every 3 hours. For example, at noon take ibuprofen, then at 3pm take Tylenol, then at 6pm take ibuprofen. Follow up with primary care provider as needed. Return with any new or worsening symptoms. In the case of an emergency call 911. Prescriptions: New azithromycin 250 mg tablet See Rx Instructions .ROUTE .COMPLEX Qty: 6 0RF Rx Instructions: For 250 mg dose pack: take 500 mg today (day 1), then 250 mg for 4 days (days 2-5) prednisone 20 mg tablet 40 mg PO DAILY 5 Days Qty: 10 0RF benzonatate 100 mg capsule 100 mg PO BID PRN (Reason: cough) Qty: 20 0RF No Action metronidazole 0.75 % (37.5mg/5 gram) gel 1 appful vaginal BEDTIME 5 Days Qty: 70 0RF clotrimazole-betamethasone 1-0.05 % cream 1 appl topical BID 14 Days Qty: 45 1RF Mirena 21 mcg/24hr (up to 8 yrs) 52 mg intrauterine device intrauterine Referrals: Judi Street MD [Primary Care Provider] - Stand Alone Forms: Work/School Release Discharge Date/Time: 02/26/25 18:55 Print Language: Italian
[2025-02-26 17:32] LABS: Influenza A PCR NEGATIVE (Negative); Influenza B PCR NEGATIVE (Negative); Resp Syncy Virus RNA Qual PCR NEGATIVE (Negative); SARS COV2 PCR INHOUSE NEGATIVE (Negative)
[2025-02-26 18:54] VITALS: BP 124/84; PULSE 109; RESP 18; TEMP 36.8; O2SAT 99
== END 2025-02-26 18:55 | disposition home or self-care (01) ==
PROVIDERS: Physician Assistant Medical; Emergency Provider Emergency Medicine Emergency Medical Services; PCP Internal Medicine
DX: J40 Bronchitis, not specified as acute or chronic (principal); R51.9 Headache, unspecified; M79.10 Myalgia, unspecified site; R05.9 Cough, unspecified; R50.9 Fever, unspecified; R00.0 Tachycardia, unspecified; Z03.818 Encounter for observation for suspected exposure to other biological agents ruled out; Z79.899 Other long term (current) drug therapy
CPT/HCPCS: 0241U; 71046; 99282; 99283

== ENCOUNTER → 2025-02-26 16:42 | Outpatient (BNV) | payer OTHER, SELFPAY | PROVIDERS: Emergency Provider Emergency Medicine Emergency Medical Services; PCP Internal Medicine; Visit Provider Radiology Diagnostic Radiology | DX: J20.9 Acute bronchitis, unspecified (principal) | CPT/HCPCS: 71046 ==